=== PATIENT | female | born 1955 | race African-American/Black ===

== ENCOUNTER 2020-10-29 19:59 | Emergency (ER) | payer MEDICARE, OTHER ==
[~2020-10-29] VITALS: Ht 170.2 cm; Wt 70.0 kg
[2020-10-29] MEDS ORDERED: METOCLOPRAMIDE HCL 10MG/2ML VIAL IV ONE (23:15)
[2020-10-29] MEDS ORDERED: DIPHENHYDRAMINE 50MG/ML VIAL IV ONE (23:15)
[2020-10-29] MEDS ORDERED: KETOROLAC 15MG/ML VIAL IV ONE (23:15)
[2020-10-29] MEDS ORDERED: SODIUM CHLORIDE 0.9% 1,000 ML IV ONE (23:15)
[2020-10-30 00:30] VITALS: BP 137/68
[2020-10-30] MEDS ORDERED: IBUP-2028 MT (00:55)
== END 2020-10-30 01:17 | disposition home or self-care (01) ==
LOC: ER 20:26
DX: G43.909 Migraine, unspecified, not intractable, without status migrainosus (principal)
CPT/HCPCS: 93005; 96361; 96374; 96375; 99284; J1200; J1885; J2765; J7030

== ENCOUNTER 2024-10-04 19:20 | Emergency (ER) | payer MEDICARE, OTHER ==
[~2024-10-04] VITALS: Ht 167.6 cm; Wt 58.9 kg
[~2024-10-04 19:20] MED LIST: IBUP-2028 MT
[2024-10-04 19:38] VITALS: TEMP 36.8; O2SAT 100
[2024-10-04 20:13] LABS: BASOPHILS % 0.7 % (0.0-2.0); EOSINOPHILS % 2.9 % (0.0-5.0); HEMATOCRIT. 39.5 % (36.0-48.0); HEMOGLOBIN. 12.6 g/dL (12.0-16.0); LYMPHOCYTES % 24.4 % (20.0-50.0); MEAN PLATELET VOLUME 8.5 fl (7.4-10.4); MONOCYTES % 6.6 % (2.0-8.0); NEUTROPHILS % 65.4 % (40.0-76.0); PLATELET 229 x1000/uL (130-400); RED BLOOD CELL COUNT 4.87 mill/uL (4.2-5.4); RED CELL DISTRIBUTION WIDTH 16.0 % (11.6-14.6)
[2024-10-04 20:28] LABS: CREATININE 1.2 mg/dL (0.6-1.0); UREA NITROGEN BLOOD 11.0 mg/dL (9-23)
[2024-10-04] MEDS: DIPHENHYDRAMINE 25MG CAPSULE PO ONE (21:52)
[2024-10-04] MEDS: KETOROLAC 15MG/ML VIAL IM ONE (21:52)
[2024-10-04] MEDS: METOCLOPRAMIDE HCL 10MG TABLET PO ONE (21:52)
[2024-10-04 22:45] VITALS: BP 146/83; PULSE 62; RESP 18; O2SAT 100
[2024-10-04 22:51] LABS: CLARITY URINE CLEAR (CLEAR); COLOR URINE YELLOW (YELLOW); GLUCOSE URINE NEGATIVE (NEGATIVE); KETONES URINE TRACE (NEGATIVE); LEUKOCYTE ESTERASE URINE 3+ (NEGATIVE); NITRITE URINE NEGATIVE (NEGATIVE); OCCULT BLOOD URINE TRACE (NEGATIVE); PH URINE 7.5 (4.5-8.0); PROTEIN URINE NEGATIVE (NEGATIVE); SPECIFIC GRAVITY URINE 1.008 (1.005-1.030); UROBILINOGEN URINE 0.2 E.U./dL (0.2-1.0)
[2024-10-04 23:18] LABS: BACTERIA URINE 1+; RBC URINE 0-2 /hpf (0-2); SQUAMOUS EPITHELIAL CELL URINE 1+ /lpf (RARE/1+)
[2024-10-04 23:19] LABS: WBC URINE 15-25 /hpf (0-2)
== END 2024-10-04 22:48 | disposition home or self-care (01) ==
LOC: ER 19:20
DX: G43.909 Migraine, unspecified, not intractable, without status migrainosus (principal); Z98.890 Other specified postprocedural states; Z79.899 Other long term (current) drug therapy
CPT/HCPCS: 99285; 70450; 80048; 81003; 85025; 87086; 36415; 96372; J1885; Q0163; J8597

== ENCOUNTER 2024-10-19 14:39 | Emergency (ER) | payer OTHER, MEDICAID ==
[~2024-10-19] VITALS: Ht 165.1 cm; Wt 60.0 kg
[2024-10-19 14:40] VITALS: TEMP 37.6; O2SAT 99
[2024-10-19] MEDS ORDERED: DIPHENHYDRAMINE 50MG CAPSULE PO ONE (15:15)
[2024-10-19] MEDS: SODIUM CHLORIDE 0.9% 1,000 ML IV ONE (16:32)
[2024-10-19] MEDS: KETOROLAC 15MG/ML VIAL IV ONE (16:54)
[2024-10-19] MEDS: METOCLOPRAMIDE HCL 10MG/2ML VIAL IV ONE (16:54)
[2024-10-19] MEDS: DEXAMETHASONE 10 MG/ML VIAL IV ONE (16:54)
[2024-10-19 16:58] VITALS: TEMP 99.6
[2024-10-19] MEDS: ACETAMINOPHEN 325MG TABLET PO ONE (16:58)
[2024-10-19] MEDS: MAGNESIUM 2 G PREMIX 50 ML IV ONE (16:59)
[2024-10-19] MEDS: MORPHINE SULFATE 4 MG/ML INJ (FOR IV/IM USE) IV ONE (17:09)
[2024-10-19] MEDS: DIPHENHYDRAMINE 25MG CAPSULE PO SCH (17:09)
[2024-10-19] MEDS: DEXAMETHASONE 10 MG/ML VIAL IV SCH (17:14)
[2024-10-19 17:21] LABS: BASOPHILS % 0.5 % (0.0-2.0); EOSINOPHILS % 1.3 % (0.0-5.0); HEMATOCRIT. 40.6 % (36.0-48.0); HEMOGLOBIN. 12.7 g/dL (12.0-16.0); LYMPHOCYTES % 18.9 % (20.0-50.0); MEAN PLATELET VOLUME 8.2 fl (7.4-10.4); MONOCYTES % 6.1 % (2.0-8.0); NEUTROPHILS % 73.2 % (40.0-76.0); PLATELET 230 x1000/uL (130-400); RED BLOOD CELL COUNT 4.81 mill/uL (4.2-5.4); RED CELL DISTRIBUTION WIDTH 16.5 % (11.6-14.6)
[2024-10-19 17:33] LABS: CREATININE 1.0 mg/dL (0.6-1.0)
[2024-10-19 17:34] LABS: UREA NITROGEN BLOOD 6 mg/dL (9-23)
[2024-10-19 17:53] LABS: ERYTHROCYTE SEDIMENTATION RATE 2 mm/hr (0-30)
[2024-10-19] MEDS ORDERED: ACET-2708 MT (18:11)
[2024-10-19 18:32] VITALS: BP 126/78; PULSE 86; RESP 16; O2SAT 99
== END 2024-10-19 20:03 | disposition home or self-care (01) ==
LOC: ER 14:39 → CANBEDREQ 18:14 → ER 20:03
DX: R51.9 Headache, unspecified (principal); Z98.890 Other specified postprocedural states; Z86.59 Personal history of other mental and behavioral disorders
CPT/HCPCS: 99285; 96365; 96375; 70450; 96366; 80048; 83735; 85025; 85651; 36415; J1885; Q0163; J1100; J3475; J2765; J2270; J7030